=== PATIENT | male | born 1955 | race African-American/Black ===

== ENCOUNTER 2025-04-19 16:56 | Emergency (ER) | payer OTHER | END 2025-04-19 17:09 | disposition left against medical advice (07) | LOC: ER 17:04 | DX: Z53.21 Procedure and treatment not carried out due to patient leaving prior to being seen by health care provider (principal) ==

== ENCOUNTER 2025-04-25 01:17 | Emergency (ER) | payer OTHER ==
[~2025-04-25] VITALS: Ht 172.7 cm; Wt 68.0 kg
[2025-04-25 02:19] VITALS: BP 153/81; TEMP 98.5; O2SAT 98
== END 2025-04-25 02:57 | disposition home or self-care (01) ==
LOC: ER 01:22
DX: R06.02 Shortness of breath (principal); R42 Dizziness and giddiness; Z77.120 Contact with and (suspected) exposure to mold (toxic); Z59.19 Other inadequate housing